=== PATIENT | female | born 2000 | race African-American/Black ===

== ENCOUNTER 2018-08-01 10:28 | Emergency (ER) | payer BC, SELFPAY ==
[2018-08-01 10:50] LABS: Bilirubin Negative (Negative); Blood, Urine Negative (Negative); Clarity CLEAR (Clear); Glucose, Urine (Dipstick) Negative (Negative); Leukocyte Negative (Negative); Nitrite Negative (Negative); Protein, Urine (Dipstick) Negative (Neg-Trace); Specific Gravity, Urine 1.024 (1.002-1.036); pH, Urine 6.5 (5.0-9.0)
[2018-08-01 10:51] LABS: Pregnancy Test - Urine (BHCG) POSITIVE (Negative); Pregu Control Background? CLEAR/WHITE (CLR/WHITE); Pregu Control Bar Appear? YES (CONTROL BAR); Specific Gravity 1.024 (1.002-1.036)
[2018-08-01 11:32] LABS: #Lymphocytes 1.6 thou/uL (1.20-3.40); #Monocytes 0.2 thou/uL (0.11-0.59); #Neutrophils 2.1 thou/uL (1.40-6.50); %Basophils 0.4 % (0.0-1.0); %Eosinophils 1.1 % (0.0-10.0); %Lymphocytes 39.2 % (28.0-48.0); %Monocytes 5.5 % (0.0-4.0); %Neutrophils 53.8 % (31.0-61.0); Hemoglobin 12.3 g/dL (12.0-16.0); Mean Corpuscular HGB CONC 32.4 g/dL (32.0-36.0); Mean Corpuscular Hemoglobin 27.3 pg (25.0-35.0); Mean Corpuscular Volume 84.3 fL (78.0-98.0); Mean Platelet Volume 9.6 fL (7.4-10.4); Platelet Count 199 thou/uL (130-400); RBC Distribution Width 14.3 % (11.5-14.5); Red Blood Cell (RBC) Count 4.49 mill/uL (4.00-5.20)
[2018-08-01 11:57] LABS: ALT (SGPT) 9 U/L (8-55); AST (SGOT) 12 U/L (5-30); Albumin 4.1 g/dL (3.5-5.0); Alkaline Phosphatase 52 U/L (40-150); Anion Gap 12 mmol/L (10-20); BUN (Urea Nitrogen) 6 mg/dL (8.4-21.0); Bilirubin, Total 0.2 mg/dL (0.2-1.2); Calc. Creatinine Clearance 0 mL/min (70-130); Calcium 9.4 mg/dL (7.8-10.44); Carbon Dioxide 21 mmol/L (22-29); Chloride 107 mmol/L (98-107); Estimated GFR-MDRD Greater than 90; Glucose 92 mg/dL (70-105); Lipase 18 U/L (8-78); Potassium 3.8 mmol/L (3.5-5.1); Protein, Total 7.1 g/dL (6.0-8.3); Sodium 136 mmol/L (136-145)
--- NOTE | 2018-08-01 13:27 | ULT ---
ULTRASOUND PELVIC: Date: 08/01/18 HISTORY: . Abdominal pain. COMPARISON: None. TECHNIQUE: Real-time Rosas scale with color Doppler and spectral analysis of the pelvis performed with transabdom inal approach only. Patient refused transvaginal approach. FINDINGS: Uterus measures 10.9 x 4.5 x 7.0 cm. The ovaries are not seen. There is an intrauterine gestational sac. No pole or yolk sac is appreciated. Mean sac diameter is 2.03 cm. IMPRESSION: Gestational sac without a yolk sac or pole seen. This can be reflective of an early a nd close follow-up HCG and ultrasound are recommended. POS: TIAGO
== END 2018-08-01 14:05 | disposition home or self-care (01) ==
LOC: ERS 10:28
DX: O20.9 Hemorrhage in early pregnancy, unspecified (principal); Z3A.01 Less than 8 weeks gestation of pregnancy
CPT/HCPCS: 36415; 76856; 80053; 81003; 81025; 83690; 84702; 85025

== ENCOUNTER 2018-10-18 20:50 | Emergency (ER) | payer OTHER | END 2018-10-18 21:35 | disposition home or self-care (01) | LOC: ERS 20:50 | DX: J30.9 Allergic rhinitis, unspecified (principal); R04.0 Epistaxis | CPT/HCPCS: 99283 ==

== ENCOUNTER 2018-12-24 11:01 | Day surgery (SDC) | payer OTHER ==
--- NOTE | 2018-12-24 11:58 | PDOC.FPROB ---
FMR OB H&P: HPI - History of Present Illness Chief Complaint: lower abdominal pain Indentification: 18 yo at 27.0 weeks History of Present Illness: This patient comes in with lower abdominal and also upper quadriceps pain which has been going on since getting off from work yesterday. 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 Villalobos instructing her to lift < 25lbs. She cannot characterize the pain, but maybe an ache. She states she has no pain at the moment but it gets worse when she walks or squats. She states she usually does not get breaks at work. She denies contractions, discharge/bleeding, burning/blood with urination. She states she feels baby moving often. She states she has had an uncomplicated to this point. Primary Care Physician: Wilfredo FMR OB H&P: Current - Care : 1 Para: 0 Gestational age: 27.0 Due date: 03/25/19 FMR OB H&P: History - Past Medical History PMH: denies asthma, htn, dm - OB History OB History: first - [employer] History [employer] History: denies abnormal pap, or STIs - Surgical History Sx History: cystectomy from chest - Social History Social History: denies smoking, alcohol, or drugs - Family History Family History: denies fam hx of breast/ovarian cancer FMR OB H&P: Medications - Current Home Medications: Medication Instructions Recorded Confirmed Type Nitrofurantoin Monohyd/M-Cryst 100 mg PO BID 5 Days #10 cap 12/24/18 Rx [Macrobid] Nitrofurantoin Monohyd/M-Cryst 100 mg PO BID 5 Days #10 cap 12/24/18 Rx [Macrobid] Vitamin 1 tab PO DAILY 12/24/18 12/24/18 History Allergies/Adverse Reactions: Allergies Allergy/AdvReac Type Severity Reaction Status Date / Time No Known Allergies Allergy Unverified 12/24/18 12:04 FMR OB H&P: ROS - Review of Systems General: denies: fever/chills, night sweats, fatigue Eyes: denies: vision changes ENT: denies: nasal congestion Cardiovascular: denies: chest pain, palpitation, claudication Respiratory: denies: cough, congestion, shortness of breath Gastrointestinal: reports: abdominal pain. denies: indigestion, bloating, cramping, nausea, vomiting, diarrhea, constipation, bright red blood Genitourinary (Female): denies: dysuria, hematuria, polyuria, vaginal discharge , vaginal bleeding Musculoskeletal: denies: stiffness, tenderness Neurologic: denies: numbness, syncope, seizures, weakness Integumentary: denies: itching, rash Psychological: denies: depression, anxiety FMR OB H&P: Vital Signs - Heart Tones Baseline: 140 Variability: moderate Acceleration: present Deceleration: absent FMR OB H&P: Physical Exam - Physical Exam General: NAD, awake, alert and oriented HEENT: normocephalic and atraumatic, PERRLA, EOMI, MMM, conjunctiva clear Neck: supple Heart: RRR, normal S1/S2, no murmurs/rubs/gallops, pulses present, no edema General: CTAB, no respiratory distress, good air movement, no rales/rhonchi, no wheezing Abdomen: soft, gravid, fundus(cm), bowel sound present Musculoskeletal: normal gait and station, pulses present, FROM in all four extremities, no misalignment/asymmetry Neurological: cranial nerves II through XII intact, sensation to pain,touch and proprioception grossly normal Skin: no rash, good tugor, capillary refill <2 seconds Lymphatic: no unusual bruising or bleeding, no purpura FMR OB H&P: A/P - Problem List (1) Status: Acute Discussion: Date/Time: 12/24/18 1156 18 yo at 27.0 weeks # lower abdominal pain - clean catch ua with squam 4-6 - will get cath ua and call patient with results, no CVA tenderness, no fevers, chills, or sweats, no burning with urination - given tylenol - likely msk vs round ligament This H&P was discussed with Dr. Sarah who agrees with the above documentation and plan. Addendum - Attending - Attending Attestation Date/Time: 12/26/18 0850 I personally evaluated the patient and discussed the management with Dr. Mendieta I agree with the History, Examination, Assessment and Plan documented above with any addition or exceptions noted below. CAth UA also returned contaminated with squamous cells and possibly skin shanel. Pt nolonger present. Given findings on history and physical will treat emperically for UTI with macrobid bid x7days.
[2018-12-24] MEDS ORDERED: Acetaminophen 500 MG TAB PO SCH (12:00)
[2018-12-24 12:34] VITALS: TEMP 98.3; BMI 36.5
[2018-12-24 13:20] LABS: Bilirubin Negative (Negative); Blood, Urine Negative (Negative); Clarity CLOUDY (Clear); Glucose, Urine (Dipstick) Negative (Negative); Leukocyte Moderate (Negative); Nitrite Negative (Negative); Protein, Urine (Dipstick) Negative (Neg-Trace); Specific Gravity, Urine 1.022 (1.002-1.036)
[2018-12-24 13:23] LABS: Bacteria/HPF 4+ HPF (None Seen); Hyaline Casts/LPF 7-10 HYALINE CAST LPF (0-3 Hyaline); Pathc Cast-AUWi Flag 0.43 (0-2.49)
[2018-12-24 13:25] LABS: Urine Culture Reflex No No
[2018-12-24 15:02] LABS: Bilirubin Negative (Negative); Blood, Urine Negative (Negative); Clarity CLEAR (Clear); Glucose, Urine (Dipstick) Negative (Negative); Leukocyte Small (Negative); Nitrite Negative (Negative); Protein, Urine (Dipstick) Negative (Neg-Trace); Specific Gravity, Urine 1.013 (1.002-1.036); Urobilinogen 0.2 mg/dL (0.2-1.0)
[2018-12-24 15:05] LABS: Bacteria/HPF 2+ HPF (None Seen); Hyaline Casts/LPF 0-3 HYALINE CAST LPF (0-3 Hyaline); RBC/HPF 0-3 HPF (0-3)
[2018-12-24 15:26] LABS: Urine Culture Reflex No No
--- NOTE | 2018-12-24 16:09 | PDOC.EVN ---
Event Note - Event Note Event Note: sent macrobid 100mg BID to pharmacy spoke to patient on phone, cath UA had bacteria but still had contaminant Will treat to err on safe side f/u with PCP next week
== END 2018-12-24 14:58 | disposition home or self-care (01) ==
LOC: L&D/OP 11:01
PROVIDERS: ATTEND Family Medicine
DX: O99.89 Other specified diseases and conditions complicating pregnancy, childbirth and the puerperium (principal); R10.30 Lower abdominal pain, unspecified; Z3A.27 27 weeks gestation of pregnancy; Z79.2 Long term (current) use of antibiotics; Z79.899 Other long term (current) drug therapy
CPT/HCPCS: 81001; 99283

== ENCOUNTER 2019-03-15 13:30 | Day surgery (SDC) | payer OTHER ==
[2019-03-15 14:12] VITALS: BMI 35.7
--- NOTE | 2019-03-15 16:15 | PRG ---
DATE OF SERVICE: 03/15/2019 PRIMARY OB: Yung Villalobos MD CHIEF COMPLAINT: Abdominal pain. HISTORY OF PRESENT ILLNESS: The patient is a 18-year-old G1, P0 female with an intrauterine at 38 weeks and 4 days, who is presenting with uterine contractions that she cannot report when they started or how strong they are or how often they feel. She just came with her mother today to be evaluated for labor. The patient denies any vaginal bleeding or leakage of fluid. She does report some upper back pain and into her shoulders when she takes a deep breath. She denies any fever, illness, headache, chest pain, or shortness of breath. She does have poor appetite and has not had a bowel movement in several days, which she reports was diarrhea at that time. The patient denies nausea or vomiting. Denies history of constipation. Denies hip problems, knee problems, or muscle weakness. She denies any new rashes, vaginal bleeding, leakage of fluid, or urinary urgency. The patient reports that she has an appointment tomorrow with her doctor, Dr. Villalobos. I also reports that her cervix was closed, the last time she was checked. PAST MEDICAL HISTORY: Negative. PAST SURGICAL HISTORY: Negative. ALLERGIES: NO KNOWN DRUG ALLERGIES. MEDICATIONS: Bactrim for recently diagnosed UTI. SOCIAL HISTORY: Denies drug, alcohol, or tobacco use. OB LABS: Unavailable at time of dictation. REVIEW OF SYSTEMS: Per HPI. PHYSICAL EXAMINATION: VITAL SIGNS: Blood pressure is 125/74, heart rate of 96, respiratory rate 18, 100% on room air, temperature 98.2. GENERAL: She appears to be in no acute distress. She is alert, oriented, cooperative, and pleasant to interact with. HEAD: Normocephalic and atraumatic. LUNGS: Clear to auscultation bilaterally. HEART: Regular rate and rhythm. ABDOMEN: Gravid, nontender to palpation. EXTREMITIES: Nontender, nonedematous. GENITOURINARY: Cervix is 1, thick, and high. heart tracing demonstrates the fetus with a baseline in the 130s with moderate long-term variability, positive 15 x 15 accelerations,no decelerations. No contractions visible on the monitor. ASSESSMENT AND PLAN: The patient is a 18-year-old G1, P0 female with an intrauterine at 38 weeks and 4 days with no evidence of labor at this time. The patient has a reactive NST and will be discharged to home with instructions to follow up with her primary OB as scheduled tomorrow. Job ID: [id number]
== END 2019-03-15 15:42 | disposition home or self-care (01) ==
LOC: L&D/OP 13:30
PROVIDERS: ATTEND Family Medicine
DX: O47.1 False labor at or after 37 completed weeks of gestation (principal); O23.43 Unspecified infection of urinary tract in pregnancy, third trimester; Z3A.38 38 weeks gestation of pregnancy; Z79.2 Long term (current) use of antibiotics; Z79.899 Other long term (current) drug therapy
CPT/HCPCS: 99282

== ENCOUNTER 2019-03-26 22:26 | Inpatient (IN) | payer OTHER ==
[2019-03-26] MEDS ORDERED: HYDROcodone/Acetaminophen 5/325 mg Tablet PO PRN (22:49)
[2019-03-26] MEDS ORDERED: NS w/ Oxytocin 10 units 500 ML IV SCH ×2 (22:49)
[2019-03-26] MEDS ORDERED: Methylergonovine 0.2 MG/ML VIAL IM PRN (22:49)
[2019-03-26] MEDS ORDERED: Ibuprofen 800 MG TAB PO PRN (22:49)
[2019-03-26] MEDS ORDERED: Diphenoxylate HCl/Atropine Tablet PO PRN (22:49)
[2019-03-26] MEDS ORDERED: Lidocaine 1% (PF) 30 ML VIAL SC PRN (22:49)
[2019-03-26] MEDS ORDERED: Misoprostol 200 MCG TAB PR PRN (22:49)
[2019-03-26] MEDS ORDERED: Promethazine HCl 25 MG/ML VIAL IM PRN (22:49)
[2019-03-26] MEDS ORDERED: NS / Oxytocin 40 units/1000ml 1,000 ML IV PRN (22:49)
[2019-03-26] MEDS ORDERED: Carboprost 250 MCG/ML AMP IM PRN (22:49)
[2019-03-26] MEDS ORDERED: Ondansetron PF 4 MG/2 ML Vial IVP PRN (22:49)
[2019-03-26 23:06] VITALS: BMI 38.0
[2019-03-26 23:35] LABS: Hemoglobin 12.4 g/dL (12.0-16.0); Mean Corpuscular HGB CONC 34.8 g/dL (32.0-36.0); Mean Corpuscular Hemoglobin 30.6 pg (25.0-35.0); Mean Platelet Volume 9.8 fL (7.4-10.4); Platelet Count 168 thou/uL (130-400); RBC Distribution Width 12.7 % (11.5-14.5); Red Blood Cell (RBC) Count 4.04 mill/uL (4.00-5.20); White Blood Cell (WBC) Count 5.7 thou/uL (4.8-10.8)
[2019-03-26] MEDS: Misoprostol 100 MCG TAB PO SCH (23:38)
[2019-03-27 00:12] LABS: Syphilis Antibody Nonreactive (Nonreactive); Syphilis Antibody Index 0.04 S/CO (<1.00 Non-Reactive)
[2019-03-27 01:03] LABS: HBSAg Index 0.32 S/CO (0-0.99); Hep B Surf Ag Non-Reactive S/CO (NonReactive)
[2019-03-27] MEDS: Butorphanol Tartrate 1 MG/ML VIAL SLOW IVP PRN ×2 (03:11→04:16)
[2019-03-27] MEDS: Lactated Ringer's 1,000 ML IV SCH ×4 (03:16→20:30)
[2019-03-27] MEDS: Misoprostol 100 MCG TAB PO SCH ×2 (04:27→23:34)
[2019-03-27] MEDS ORDERED: Fentanyl 4 mcg/Bup 0.1% Cadd 100 ML ONE (04:29)
[2019-03-27] MEDS ORDERED: Ondansetron PF 4 MG/2 ML Vial IVP PRN ×3 (05:53→09:21)
[2019-03-27] MEDS ORDERED: Acetaminophen 325 MG TAB PO PRN (05:53)
[2019-03-27] MEDS ORDERED: diphenhydrAMINE 50 MG/ML VIAL IVP PRN ×2 (05:53→07:52)
[2019-03-27] MEDS ORDERED: Lactated Ringer's 500 ML IV PRN (05:53)
[2019-03-27] MEDS ORDERED: Hydrocerin (Eucerin) Cream 120 gm Jar TOP PRN (05:53)
[2019-03-27] MEDS ORDERED: ePHEDrine/0.9% NaCl/PF SYRINGE 50 mg/10 ml SLOW IVP PRN (05:53)
[2019-03-27] MEDS ORDERED: Naloxone HCl 0.4 mg/ml Vial IVP PRN ×4 (05:53→08:00)
[2019-03-27] MEDS ORDERED: Promethazine HCl 25 MG/ML VIAL IM PRN ×2 (05:53→07:52)
[2019-03-27] MEDS ORDERED: Communication Order-Pharmacy FS SCH ×2 (06:00→08:00)
[2019-03-27] MEDS ORDERED: Fentanyl 4 mcg/Bupivacaine 0.1% Cassette 100 ML EPIDURAL SCH (06:00)
[2019-03-27] MEDS ORDERED: Terbutaline Sulfate 1 MG/ML VIAL ONE (06:14)
[2019-03-27] MEDS ORDERED: Lidocaine 2% 10 ML INJ ONE (06:52)
[2019-03-27] MEDS ORDERED: Oxytocin 10 UNITS/ML VIAL ONE ×2 (06:54→07:37)
[2019-03-27] MEDS ORDERED: Ondansetron PF 4 MG/2 ML Vial ONE ×2 (06:54→09:51)
[2019-03-27] MEDS ORDERED: MORPHINE 5 MG/10 ML PF VIAL ONE (06:54)
[2019-03-27] MEDS ORDERED: Metoclopramide HCl 10 MG/2 ML VIAL ONE ×2 (07:11→09:51)
[2019-03-27 07:45] LABS: Actual Bicarbonate (HCO3v) 23 mEq/L (22-28); Analyzer IN Cardio OR; Base Excess -2.4 mEq/L (-2.0 to +3.0); pH (Cord, venous) 7.36 (7.32-7.43)
[2019-03-27 07:46] LABS: Actual Bicarbonate (HCO3a) 26.1 mEq/L (22-28); Analyzer IN Cardio OR; Base Excess (BEa) -1.6 mEq/L (-2.0 to +3.0)
[2019-03-27] MEDS ORDERED: Promethazine HCl 25 MG SUPP PR PRN (07:52)
[2019-03-27] MEDS ORDERED: Naloxone HCl 0.4 mg/ml Vial IV PRN (07:52)
[2019-03-27] MEDS ORDERED: Eucerin (Mineral Oil/Petrolatum,White) 30 gm Jar TOP PRN (07:52)
--- NOTE | 2019-03-27 07:52 | PDOC.OPDEL ---
OB Operative/Delivery Note - Additional Findings/Plan Compilations/Other Findings: Procedure Note Date of Procedure: 03/27/19 Resident Surgeon: Dr. Max Mendieta Attending Surgeon: Dr. Yugn Villalobos Procedure: Primary low transverse caesarean section Preoperative Diagnosis: 1)Term intrauterine 2) Non-reassuring heart tones Postoperative Diagnosis: 1)same as above Anesthesia: epidural Indications: The patient is a 18 year old G1,P0 female at 40.3 weeks gestation who presented for cytotec induction and was noted to have recurrent non- reassuring heart tones leading to caesarean section. Procedure in Detail: After risks, benefits, and alternatives were explained to the patient, she gave informed consent. Pre-operative antibiotics included Cefazolin 2 gram IV. The patient was taken to the operating room and epidural anesthesia was found to be sufficient. She was placed in the supine position with a left tilt and prepped and draped in usual sterile fashion. A Pfannenstiel incision was made with a scalpel and carried down to the level of the fascia which was sharply nicked. The fascial cut was extended bilaterally with Campos sissors. The inferior and superior edges of the cut fascial edges were elevated with Jarocho clamps and the underlying rectus muscles were sharply and bluntly dissected free. The recti were divided digitally and retracted manually. The peritoneum was entered bluntly and retracted manually. Bladder blade was placed. A low transverse score was made with the scalpel and the uterus was entered in the midline with the scalpel. Clear fluid was seen. The hysterotomy was extended manually. The infant was noted to be vertex and was easily delivered by fundal pressure. Mouth and nares were bulb suctioned. Cord clamped and cut and grossly normal female infant was handed to waiting nurse. Cord blood was obtained. Placenta was manually extracted, found to be intact with 3 vessel cord and discarded. The uterus was externalized and the endometrium was curetted with a dry lap. The bladder blade was replaced and the uterus was closed with a running locking 0-Vicryl followed by a running non- locking #0 Vicryl imbricating suture. 2 figure of eight knots of 0-Vicryl were placed after this. Following this hemostasis was noted. The abdomen was irrigated with saline and suctioned free of clots. The uterus was internalized and the hysterotomy was again noted to be hemostatic. The peritoneum was closed using 3-0 vicryl in a running non-locking fashion. The fascia was closed with a running non-locking 0-PDS suture. The subcutaneous tissue was irrigated and there were no bleeders. The subcutaneous layer was approximated with 3 simple interrupted knots of 3-0 chromic. The skin was approximated with stacie and a pressure dressing was placed. All counts were correct. The patient tolerated the procedure well and was taken to the recovery room in stable condition. Estimated Blood Loss: 700 ml Complications: None Specimens: Cord blood sent to lab for blood type Findings: Grossly normal female . Grossly normal placenta with 3 vessel cord discarded. Drains: [place] to gravity draining clear urine
[2019-03-27] MEDS ORDERED: Bisacodyl 10 MG SUPP PR PRN (09:21)
[2019-03-27] MEDS ORDERED: NS / Oxytocin 40 units/1000ml 1,000 ML IV SCH (09:21)
[2019-03-27] MEDS ORDERED: HYDROcodone/Acetaminophen 5/325 mg Tablet PO PRN (09:21)
[2019-03-27] MEDS ORDERED: Meperidine HCl/PF 25 MG/ML VIAL IM PRN (09:21)
[2019-03-27] MEDS ORDERED: Adacel (T-DAP) 0.5 ML SYRINGE IM ONE (09:21)
[2019-03-27] MEDS: Ketorolac Tromethamine 30 MG/ML VIAL IVP PRN ×2 (10:39→17:08)
[2019-03-27] MEDS: Prenatal Vitamin 1 TAB PO SCH (15:03)
[2019-03-27] MEDS: Docusate Calcium (SURFAK) 240 MG CAP PO SCH ×2 (15:03→23:17)
[2019-03-27] MEDS: Ferrous Sulfate 325 MG TAB PO SCH ×2 (15:03→23:17)
[2019-03-27] MEDS: Ibuprofen 800 MG TAB PO SCH ×2 (15:04→23:18)
[2019-03-27] MEDS ORDERED: Bupivacaine/Epinephrine 0.25% 30 ML VIAL ONE (20:46)
[2019-03-28] MEDS: Ketorolac Tromethamine 30 MG/ML VIAL IVP PRN (00:58)
[2019-03-28 07:41] LABS: Hemoglobin 10.3 g/dL (12.0-16.0); Mean Corpuscular HGB CONC 34.6 g/dL (32.0-36.0); Mean Corpuscular Hemoglobin 31.1 pg (25.0-35.0); Mean Platelet Volume 9.8 fL (7.4-10.4); Platelet Count 104 thou/uL (130-400); RBC Distribution Width 12.7 % (11.5-14.5); White Blood Cell (WBC) Count 6.2 thou/uL (4.8-10.8)
[2019-03-28] MEDS: Docusate Calcium (SURFAK) 240 MG CAP PO SCH ×2 (09:00→22:11)
[2019-03-28] MEDS: Ibuprofen 800 MG TAB PO SCH ×3 (09:00→22:14)
[2019-03-28] MEDS: Prenatal Vitamin 1 TAB PO SCH (09:00)
[2019-03-28] MEDS: Ferrous Sulfate 325 MG TAB PO SCH ×2 (10:54→22:14)
[2019-03-28] MEDS: HYDROcodone/Acetaminophen 5/325 mg Tablet PO PRN ×2 (14:16→22:11)
[2019-03-29] MEDS: Ibuprofen 800 MG TAB PO SCH ×3 (00:33→18:41)
[2019-03-29] MEDS: Simethicone Chewable 80 MG TAB PO PRN (00:56)
[2019-03-29] MEDS: HYDROcodone/Acetaminophen 5/325 mg Tablet PO PRN ×2 (02:29→08:45)
[2019-03-29] MEDS: Prenatal Vitamin 1 TAB PO SCH (08:45)
[2019-03-29] MEDS: Docusate Calcium (SURFAK) 240 MG CAP PO SCH ×2 (08:45→21:46)
[2019-03-29] MEDS: Ferrous Sulfate 325 MG TAB PO SCH ×2 (10:40→22:46)
[2019-03-30] MEDS: Ibuprofen 800 MG TAB PO SCH (04:16)
[2019-03-30] MEDS: HYDROcodone/Acetaminophen 5/325 mg Tablet PO PRN (04:18)
[2019-03-30 08:21] VITALS: BP 120/69; TEMP 98.1
[2019-03-30] MEDS: Ferrous Sulfate 325 MG TAB PO SCH (09:49)
[2019-03-30] MEDS: Docusate Calcium (SURFAK) 240 MG CAP PO SCH (09:49)
[2019-03-30] MEDS: Prenatal Vitamin 1 TAB PO SCH (09:49)
[2019-03-30] MEDS: Simethicone Chewable 80 MG TAB PO PRN (09:50)
== END 2019-03-30 13:30 | disposition home or self-care (01) | DRG 788 ==
LOC: UNDOADMIN 22:26 → L&D 22:26 → 3SW 03-27 09:50
PROVIDERS: ADMIT Family Medicine; ATTEND Family Medicine
PROC: 3E0P7VZ Introduction of Hormone into Female Reproductive, Via Natural or Artificial Opening (ICD-10-PCS; 2019-03-26)
PROC: 10D00Z1 Extraction of Products of Conception, Low, Open Approach (ICD-10-PCS; principal; 2019-03-27)
DX: O76 Abnormality in fetal heart rate and rhythm complicating labor and delivery (principal); Z3A.40 40 weeks gestation of pregnancy; Z37.0 Single live birth
CPT/HCPCS: 36415; 51702; 82805; 85027; 85461; 86780; 86850; 86900; 86901; 87340; 88307; 90384; 90715; 96372; J0595; J0690; J1200; J1885; J2001; J2270; J2405; J2590; J2765; J3105

== ENCOUNTER 2019-06-09 15:20 | Emergency (ER) | payer OTHER | END 2019-06-09 16:44 | disposition home or self-care (01) | LOC: ERS 15:20 | DX: H57.12 Ocular pain, left eye (principal); Y04.2XXA Assault by strike against or bumped into by another person, initial encounter | CPT/HCPCS: 99283 ==